=== PATIENT | female | born 1945 | race Two or more races ===

== ENCOUNTER 2024-07-14 13:27 | Outpatient (AMB) | payer MEDICARE, MEDICAID, SELFPAY ==
--- NOTE | 2024-07-14 13:37 | ORTHONT_ITS ---
Vital signs 07/14/24 13:38 Height 1.65 m Height Method Stated Weight 88.082 kg Weight Measurement Method Standing Scale BMI 32.3 BP 126/72 Blood Pressure Source Automatic Cuff Blood Pressure Location Left Upper Arm Position Sitting Respiration 18 Pulse 69 Pulse Source Monitor Temp 97.7 F Temp Source Temporal Artery Scan Pulse Oximetry (%) 95 Oxygen Delivery Method Room Air Med/Allergies Allergies & Medications Allergies No Known Allergies Allergy (Verified 07/14/24 13:38) Medication Reconciliation lansoprazole 30 mg capsule,delayed release 30 mg PO QDAY 07/14/24 [History Confirmed 07/14/24] levothyroxine 50 mcg capsule 50 mcg PO QDAY 07/14/24 [History Confirmed 07/14/24] meloxicam 7.5 mg tablet 7.5 mg PO QDAY #45 tabs 07/14/24 [Rx] rosuvastatin 10 mg tablet 10 mg PO QDAY 07/14/24 [History Confirmed 07/14/24] Exam Exam Patient is in no acute distress and is cooperative with the examination today. Breathing is nonlabored. In no respiratory distress. Bilateral extremities were evaluated and demonstrates sensation intact to light touch. Palpable pedal pulses are present. No significant edema is present. Bilateral hips were examined. The patient has no pain with log roll of the hips. Internal rotation to 30 degrees and external rotation to 30 degrees is painless. Negative FADIR. The left knee was examined. The left knee is in varus alignment. Range of motion from 0-115 degrees. Knee is stable to varus and valgus as well as AP translation with <5mm. Patient has a negative McMurrays. There is no pain with patellofemoral compression and no crepitus noted. The knee is tender to palpation medially. The right knee was also examined. The right knee is in varus alignment. Range of motion from 0-120 degrees. Knee is stable to varus and valgus as well as AP translation with <5mm. Patient has a negative McMurrays. There is no pain with patellofemoral compression and no crepitus noted. The knee is tender to palpation medially. Patient has nonweightbearing x-rays. This demonstrates mild arthritis of her left knee Assessment and Plan Problem List (1) Degenerative arthritis of knee, bilateral: Status: Acute Plan: Patient is a pleasant 78-year-old female With bilateral knee arthritis. The Patient is doing well and does not want any injections or surgery at this time. I discussed with her that she has arthritis and the natural history of it. We will see her back once we get weightbearing x-rays Advanced Care Planning Discussion Advance care planning discussed with:: patient and child Office Procedures GNS Level of Care Nursing/Assessment Patient Status: Initial/New Patient Nursing Assessment/Reassesment: Medication Reconciliation, Update PMH in EMR and Vital Signs Coordination of Care: Complex Care and Chronic Disease 1-5, Education Complex Pt/Fam, Consent,records obtained, informed consent, Results/Orders obtained and Staff clarify orders New Patient Charge New Patient Point Assignment: 1094 New Patient Point Charge: SECURITY OPERATIONS MANAGER Level 3 ([id number]) MA Intake Visit Data Collection New Patient or Established: New Patient (never been to [facility]) Reason for Visit:: RIGHT KNEE OA Seen by Clinical Staff ONLY (RN/MA): No Supervisor Travel Trailer Required: No PCP or OBGYN visit in last 3 months: Yes Hx Now: No Do You Feel Safe at Home: Yes Authorities Contacted: N/A Questionairres Past Medical History Past Medical History Have you ever been diagnosed with any of the following: Cardiology Problems Hypercholesterolemia: Yes Subjective Visit Visit for: new patient and knee (RIGHT) Immunization / Flu Flu Vaccine in the Last 12 Months: No Flu Vaccine Exclusion Criteria: Refused by Patient History of Present Illness Chief complaint: Bilateral knee pain Mago is a pleasant 78-year-old female with bilateral knee pain. She does not want any injections because she had prior friends that had bad experience with injections. She is under the impression she will get some kind of laser surgery and does not want anything surgically or anything in her knee. She has not had any anti-inflammatories. Personal History Occupation: NONE Hobbies: NONE Pain Pain level (0-10): 5 Pain duration: ALL DAY Pain location: inside (medial) Pain quality: aching Pain timing: increases with activity Associated signs & symptoms: numbness and weakness Ambulatory data Ambulatory device: none Treatments Improvement with previous injections: No Number of Physical Therapy sessions: 2 Improvement with PT: No Improvement with NSAIDS: no Review of Systems Review of Systems: All systems negative unless otherwise noted in HPI.
[2024-07-14 13:38] VITALS: BP 126/72; PULSE 69; RESP 18; TEMP 36.5; O2SAT 95; BMI 32.3
== END 2024-07-14 14:10 | disposition home or self-care (01) ==
PROVIDERS: PCP Family Medicine; Referring Provider Family Medicine; Supervising Provider Orthopaedic Surgery Adult Reconstructive Orthopaedic Surgery; Visit Provider Orthopaedic Surgery Adult Reconstructive Orthopaedic Surgery
DX: M17.0 Bilateral primary osteoarthritis of knee (principal); M25.562 Pain in left knee; M25.561 Pain in right knee; E78.00 Pure hypercholesterolemia, unspecified
CPT/HCPCS: 99203; G0463